=== PATIENT | male | born 1970 | race Native Hawaiian/Other Pacific Islander ===

== ENCOUNTER 2018-10-23 19:51 | Emergency (ER) | payer OTHER ==
--- NOTE | 2018-10-23 20:47 | Event Note ---
ED Screening Note ED Screening Note: pt states he closed the car trunk on his head happened about 1 hour [employer] has a wound to the scalp states he just has pain around the wound no LOC no numbness, no weakness, no vision changes last tetanus immunization two years ago This initial assessment/diagnostic orders/clinical plan/treatment(s) is/are subject to change based on patients health status, clinical progression and re- assessment by fellow clinical providers in the ED. Further treatment and workup at subsequent clinical providers discretion. Patient/guardian urged not to elope from the ED as their condition may be serious if not clinically assessed and managed.
--- NOTE | 2018-10-23 23:55 | Emergency Department Report ---
ED Head Injury/Laceration HPI - HPI Occurred When: Today Mechanism: Direct Blow Location: Parietal Pain: Mild Tetanus Status: Up to Date Symptoms: Loss of Consciousness: No, Nausea: No, Blurred Vision: No, Unusual Behavior: No, Headache: No, Swelling: No, Bruising: No, Break in Skin: Yes (Laceration scalp ), Bleeding: No Other History: pt states he closed the car trunk on his head happened about 1 hour [employer]. has a wound to the scalp states he just has pain around the wound. no LOC no numbness, no weakness, no vision changes no blurred vision no dizziness no deformity or swelling, last tetanus immunization two years ago ED General PMH - Social History Smoking Status: Never Smoker ED Review of Systems ROS: Stated complaint: HEAD INJURY Other details as noted in HPI Constitutional: denies: chills, fever Eyes: denies: eye pain, eye discharge, vision change ENT: denies: ear pain, throat pain Respiratory: denies: cough, shortness of breath, wheezing Cardiovascular: denies: chest pain, palpitations Endocrine: no symptoms reported Gastrointestinal: denies: abdominal pain, nausea, diarrhea Genitourinary: denies: urgency, dysuria, frequency, hematuria Musculoskeletal: back pain. denies: joint swelling, arthralgia Skin: as per HPI, other (scalp laceration ) Neurological: denies: headache, weakness, paresthesias, vertigo Psychiatric: denies: anxiety, depression Hematological/Lymphatic: denies: easy bleeding, easy bruising Head Inj w/lac Physical Exam - Exam General: Vital signs noted. No distress. Alert and acting appropriately. Head: Yes PERRL, Yes Abrasion (scalp lacertion 4 cm), No Hemotympanum, No Hematoma/Ecchymosis, No Epistaxis, No Stepoff/Deformity, No Foreign Body Wound Length (cm): 4 Laceration Location: Parietal Chest, Abd, & Ext: Yes Clear Lung Sounds, Yes Regular Heart Rhythm, No Neck Pain, No Heart Murmur, No Abdominal Tenderness, No Back Tenderness, No Extremity Injury Neuroligical (Head Inj W/O Lac: Yes Normal Speech, Yes Normal Gait, No Lethargy, No Disorientation, No Focal Numbness, No Focal Weakness Exam: no active bleeding no stepoff no crepitius no deformity no deformity.. - Laceration /Wound Repair Left Medial Head Wound Length (cm): 4 (cm) Wound's Depth, Shape: linear Wound Explored: clean Irrigated w/ Saline (ccs): 150 Betadine Prep?: No Anesthesia: 1% Lidocaine Volume Anesthetic (ccs): 4 Wound Debrided: minimal Wound Repaired With: sutures (saple ) Suture Size/Type: 4:0 Layer Closure?: No Sterile Dressing Applied?: No Progress: Patient is a 8-year-old male who presents for ; second digit finger ED Critical Care Note - Critical Care Note Total Time (mins): 1 ED Disposition Clinical Impression: Head injury Qualifiers: Encounter type: initial encounter Qualified Code(s): S09.90XA - Unspecified injury of head, initial encounter Scalp laceration Qualifiers: Encounter type: initial encounter Qualified Code(s): S01.01XA - Laceration without foreign body of scalp, initial encounter Disposition: TO HOME OR SELFCARE Is pt being admited?: No Does the pt Need Aspirin: No Condition: Good Instructions: Minor Head Injury (ED), Staple Care (ED) Additional Instructions: return to ed if sumptoms worsen Prescriptions: traMADol [Ultram] 50 mg PO Q6HR PRN #12 tablet PRN Reason: Pain Referrals: PRIMARY CARE, [Primary Care Provider] - 3-5 Days Forms: Work/School Release Form(ED) Time of Disposition: 11:00
[2018-10-24 00:54] VITALS: BP 129/83
== END 2018-10-24 00:54 | disposition home or self-care (01) ==
LOC: ED 19:51
DX: S01.01XA Laceration without foreign body of scalp, initial encounter (principal); X58.XXXA Exposure to other specified factors, initial encounter; Y93.89 Activity, other specified; Y92.89 Other specified places as the place of occurrence of the external cause; Y99.8 Other external cause status
CPT/HCPCS: 99282

== ENCOUNTER 2019-03-06 08:58 | Outpatient (CLI) | payer OTHER ==
--- NOTE | 2019-03-06 13:09 | Nuclear Medicine Report ---
Bone Scan HISTORY: R91.8 SMALL 1 CM LUCENCY INVOLVING THE LEFT 7TH RIB. TECHNIQUE: Patient was given 26 mCi of technetium MDP. COMPARISON: Chest x-ray from 06/23/2011 FINDINGS: Aside from a small amount of extravasation in the left antecubital fossa and mild degenera tive changes in the hands, shoulders, SI joints, knees, and feet, there is no abnormal radiotracer up take. No abnormal uptake seen in the ribs. IMPRESSION: Scattered degenerative uptake with no other abnormality identified. Signer Name: Miguel Estrella MD Signed: 03/06/2019 1:05 PM Workstation Name: [id number]
== END 2019-03-06 08:59 | disposition home or self-care (01) ==
LOC: NM 08:58
PROVIDERS: ATTEND Internal Medicine
DX: M19.012 Primary osteoarthritis, left shoulder (principal); M47.898 Other spondylosis, sacral and sacrococcygeal region; M17.12 Unilateral primary osteoarthritis, left knee; M19.072 Primary osteoarthritis, left ankle and foot; R91.8 Other nonspecific abnormal finding of lung field
CPT/HCPCS: 78306; A9503